=== PATIENT | female | born 1955 | race Caucasian/White ===

== ENCOUNTER 2020-08-05 08:13 | Outpatient (CLI) | payer MEDICARE ==
[2020-08-05 08:58] LABS: #Basophils 0.1 thou/uL (0.0-0.2); #Eosinphils 0.3 thou/uL (0.0-0.7); #Monocytes 0.3 thou/uL (0.11-0.59); #Neutrophils 4.6 thou/uL (1.40-6.50); %Basophils 1.5 % (0.0-1.0); %Eosinophils 3.9 % (0.0-10.0); %Lymphocytes 26.7 % (21.0-51.0); %Monocytes 4.6 % (0.0-10.0); %Neutrophils 63.3 % (42.0-75.0); Hemoglobin 16.5 g/dL (12.0-16.0); Mean Corpuscular HGB CONC 32.1 g/dL (32.0-36.0); Mean Corpuscular Hemoglobin 32.6 pg (27.0-31.0); Mean Corpuscular Volume 101.7 fL (78.0-98.0); Mean Platelet Volume 8.3 fL (7.4-10.4); Platelet Count 266 thou/uL (130-400); RBC Distribution Width 12.4 % (11.5-14.5); Red Blood Cell (RBC) Count 5.06 mill/uL (4.20-5.40); White Blood Cell (WBC) Count 7.3 thou/uL (4.8-10.8)
[2020-08-05 09:05] LABS: ALT (SGPT) 13 U/L (8-55); AST (SGOT) 16 U/L (5-34); Albumin 4.2 g/dL (3.4-4.8); Alkaline Phosphatase 64 U/L (40-110); Anion Gap 17 mmol/L (10-20); BUN (Urea Nitrogen) 13 mg/dL (9.8-20.1); Bilirubin, Total 0.4 mg/dL (0.2-1.2); Calc. Creatinine Clearance 0 mL/min (70-130); Calcium 9.7 mg/dL (7.8-10.44); Carbon Dioxide 24 mmol/L (23-31); Cardiac Risk 3.2 (Less than 4.5); Chloride 104 mmol/L (98-107); Cholesterol 222 mg/dl (< 200 Desired); Estimated GFR-MDRD 78; Globulin 3.5 g/dL (2.4-3.5); Glucose 90 mg/dL (80-115); HDL Cholesterol 69 mg/dL (>60 Neg Risk); LDL Cholesterol, Calculated 124 mg/dL; Potassium 3.2 mmol/L (3.5-5.1); Protein, Total 7.7 g/dL (6.0-8.3); Sodium 142 mmol/L (136-145); Triglycerides 144 mg/dL (Less than 150)
--- NOTE | 2020-08-05 09:17 | RAD ---
EXAM: Chest PA and lateral: HISTORY: Chronic bronchitis COMPARISON: 05/20/2011 FINDINGS: Minimal stable increased linear markings bilaterally evidence for mild chronic change. Heart size:Within normal limits. Lungs:Clear of acute process. No confluent pneumonia, overt edema, pleural effusion, or other acute process. IMPRESSION: No significant acute intrathoracic disease. Atherosclerosis of the aorta. Stable from prior study.
[2020-08-05 09:43] LABS: Bilirubin Negative (Negative); Blood, Urine Trace (Negative); Clarity Slightly Cloudy (Clear); Glucose, Urine (Dipstick) Negative (Negative); Ketone, Urine Negative (Negative); Leukocyte Small (Negative); Nitrite Negative (Negative); Protein, Urine (Dipstick) 30 mg/dL (Neg-Trace); Urobilinogen 0.2 mg/dL (Less than 2); pH, Urine 5.5 (5.0-9.0)
[2020-08-05 09:50] LABS: RBC/HPF 0-3 HPF (0-3); WBC/HPF Greater than 50 HPF (0-3)
[2020-08-05 09:51] LABS: Bacteria/HPF 1+ HPF (None Seen)
== END 2020-08-05 08:14 | disposition home or self-care (01) ==
LOC: MADLAB 08:13
PROVIDERS: ATTEND Family Medicine
DX: I10 Essential (primary) hypertension (principal); J42 Unspecified chronic bronchitis
CPT/HCPCS: 36415; 71046; 80053; 80061; 81001; 84443; 85025